=== PATIENT | male | born 1960 | race African-American/Black ===

== ENCOUNTER 2018-02-27 10:10 | Emergency (ER) | payer SELFPAY ==
[~2018-02-27] VITALS: Ht 170.2 cm; Wt 81.0 kg
[~2018-02-27 10:10] MED LIST: Z.0.NO CURRENT MEDS
[2018-02-27 10:38] VITALS: BP 197/117; PULSE 71; RESP 18; TEMP 98.3; O2SAT 99
--- NOTE | 2018-02-27 11:34 | RADRPT ---
EXAM DATE/TIME: 02/27/2018 11:28 [place] COMPARISON: No previous studies available for comparison. INDICATIONS : Left thumb pain, denies injury MEDICAL HISTORY : None. SURGICAL HISTORY : None. ENCOUNTER: Initial ACUITY: 1 month PAIN SCORE: 6/10 LOCATION: Left Thumb FINDINGS: Examination of the first digit of the left hand demonstrates no evidence of fracture or dislocation. No radiopaque foreign bodies are seen. The soft tissues are intact. CONCLUSION: Unremarkable examination of the left first finger. Johnie Amezcua MD on February 27, 2018 at 11:31 Board Certified Radiologist. This report was verified electronically.
[2018-02-27] MEDS ORDERED: NAPR500T2 PO (11:55)
--- NOTE | 2018-02-27 11:55 | PD ---
HPI Chief Complaint: Pain: Acute or Chronic Time Seen by Provider: 11:07 Travel History International Travel<30 days: No Contact w/Intl Traveler<30days: No Traveled to known affect area: No History of Present Illness HPI 57-year-old man presents emergency department complaining of pain in his left thumb base, more on the medial side, ongoing for about a week or so. Worse when he puts pressure in certain positions. Does not recall injuring it. No major injuries in the past. No puncture wounds of the nose. Pain is been intermittent but worsening. encouraged him to get it checked out. Otherwise has been well. History Past Medical History Medical History: Denies Significant Hx Social History Alcohol Use: No Tobacco Use: No Allergies-Medications (Allergen,Severity, Reaction): Coded Allergies: No Known Allergies (Verified , 03/08/13) Reported Meds & Prescriptions Reported Meds & Active Scripts Active Reported No Current Meds (Miscellaneous Medication) Misc Review of Systems Except as stated in HPI: all other systems reviewed are Neg Physical Exam Narrative GENERAL: Well-appearing 57-year-old man, no acute distress. SKIN: Warm and dry. CARDIOVASCULAR: Warm and well perfused. RESPIRATORY: Normal rate and effort. MUSCULOSKELETAL: Focused examination of the left hand reveals pain at a specific area at the base of the thumb, medially, without any corresponding soft tissue prominence or nodules. Strength in the thumb is full in all movements, there is no obvious ligamentous instability in the thumb. Thumb otherwise normal to exam. NEUROLOGICAL: Awake and alert. No gross deficits. Data Data Last Documented VS Vital Signs Date Time Temp Pulse Resp B/P (MAP) Pulse Ox O2 Delivery O2 Flow Rate FiO2 02/27/18 10:38 98.3 71 18 197/117 (143) 99 Orders Orders Finger (Uqi2wxy) (02/27/18 ) MDM Medical Decision Making Medical Screen Exam Complete: Yes Emergency Medical Condition: Yes Interpretation(s) X-ray left thumb normal Differential Diagnosis Strain or sprain, foreign body, puncture wound, avulsion injury of the lateral collateral ligaments, fracture, gout, other Narrative Course Medical decision making appears a 57-year-old male presents emerged department pain at the base of his left thumb. He looks well. Exam is really unremarkable evidence of focal discrete tenderness. Some suspicion he may be a small puncture wound and has a little granuloma or infection near. Does not look abscess or anything like that. X-rays normal. This point recommend NSAIDs in time. If it is still bothering him in a month I recommend that he get it checked out again by his primary physician. Diagnosis Primary Impression: Thumb pain Patient Instructions: General Instructions Additional Instructions: Follow-up with your primary physician in 1 month if you are still having symptoms per Return to the emergency department for any new or worsening symptoms. Med/Other Pt SpecificInfo: Prescription(s) given Scripts Naproxen (Naproxen) 500 Mg Tab 500 MG PO BID, #14 TAB 0 Refills Prov: Cliff Mccartney MD 02/27/18 Disposition: 01 DISCHARGE HOME Condition: Stable Cliff Mccartney MD February 27, 2018 11:55
== END 2018-02-27 12:04 | disposition home or self-care (01) ==
LOC: NEPK 10:10
DX: M79.645 Pain in left finger(s) (principal)
CPT/HCPCS: 73140; 99283